=== PATIENT | male | born 1955 | race Caucasian/White ===

== ENCOUNTER 2017-09-03 06:52 | Inpatient (IN) | payer MEDICARE, OTHER ==
[2017-09-03] VITALS (18 sets, daily range): BP systolic 84–147; BP diastolic 37–84
[~2017-09-03] VITALS: Ht 167.6 cm; Wt 68.2 kg
[2017-09-03] MEDS ORDERED: normal saline 1000ML IV soln IV ONE (07:05)
[2017-09-03 07:17] LABS: EOSINOPHILS # (AUTO) 0.1 X10'3 (0-0.9); EOSINOPHILS % (AUTO) 1.3 % (0-6); LYMPHOCYTES % (AUTO) 21.2 % (21-51); MEAN CORPUSCULAR HEMOGLOBIN 26.7 PG (27.0-31.0); MEAN CORPUSCULAR HGB CONC 32.4 % (33.0-36.5); MEAN CORPUSCULAR VOLUME 82.7 FL (78-98); MEAN PLATELET VOLUME 7.6 FL (7.4-10.4); MONOCYTES # (AUTO) 0.5 X10'3 (0-0.9); MONOCYTES % (AUTO) 9.3 % (2-12); NEUTROPHILS # (AUTO) 3.3 X10'3 (1.8-7.7); NEUTROPHILS % (AUTO) 67.2 % (42-75); PLATELET COUNT 186 X10'3 (140-440); RED BLOOD COUNT 2.41 X10'6 (4.70-6.10); WHITE BLOOD COUNT 4.9 X10'3 (4.5-11.0)
[2017-09-03 07:20] LABS: HEMATOCRIT 19.9 % (42.0-52.0); HEMOGLOBIN 6.4 g/dl (14.0-17.9)
[2017-09-03] MEDS ORDERED: pantoprazole IV 80 MG in normal saline 100ml IV soln 100 ML IV ONE ×4 (07:25)
[2017-09-03] MEDS ORDERED: proCHLORperazine 10 MG/2 ml inj IV ONE (07:25)
[2017-09-03 07:27] LABS: INR 1.1 INR; PARTIAL THROMBOPLASTIN TIME 23 SECONDS (22-32)
[2017-09-03 07:31] LABS: ALANINE AMINOTRANSFERASE 57 U/L (12-78); ALBUMIN 2.8 G/DL (3.4-5.0); ALBUMIN/GLOBULIN RATIO 0.8 (1.1-1.5); ANION GAP 8 (8-16); ASPARTATE AMINO TRANSFERASE 39 U/L (10-37); BILIRUBIN,TOTAL 1.1 MG/DL (0.1-1.0); BLOOD UREA NITROGEN 34 MG/DL (7-18); BUN/CREATININE RATIO 35.8 (5.4-32.0); CALCIUM 8.7 MG/DL (8.5-10.1); CHLORIDE 104 MMOL/L (99-107); CREATININE 0.95 MG/DL (0.60-1.10); GLUCOSE 102 MG/DL (70-104); POTASSIUM 3.9 MMOL/L (3.5-5.1); SODIUM 139 MMOL/L (135-145); TOTAL CARBON DIOXIDE 27.2 MMOL/L (24-32); TOTAL PROTEIN 6.4 G/DL (6.4-8.2); eGFR 81 ML/MIN
[2017-09-03 07:32] LABS: ALKALINE PHOSPHATASE 183 IU/L (46-116)
[2017-09-03] MEDS: pantoprazole 40MG/NS 100ML BAG 100 ML IV SCH ×6 (07:44→23:52)
[2017-09-03] MEDS ORDERED: TRAZ-146 PO (08:01)
[2017-09-03] MEDS ORDERED: QUET-1 PO (08:01)
[2017-09-03] MEDS ORDERED: acetaminophen 325mg tablet PO PRN (08:20)
[2017-09-03] MEDS ORDERED: magnesium hydroxide 30ml (MOM) UD suspension PO PRN (08:20)
[2017-09-03] MEDS ORDERED: mag hydrox/Alum hydrox/simeth 30ml oral suspension PO PRN (08:20)
[2017-09-03] MEDS ORDERED: ondansetron/PF 4mg/2ml inj IV PRN (08:20)
[2017-09-03] MEDS ORDERED: LIDOcaine Viscous 15ml cup ONE (09:23)
[2017-09-03] MEDS ORDERED: MIDAZolam 5mg/5ml vial ONE (09:23)
[2017-09-03] MEDS ORDERED: fentaNYL/PF 50MCG/1 ML 2ML syringe ONE (09:23)
[2017-09-03 09:39] LABS: CLARITY,URINE CLEAR (Clear); COLOR,URINE YELLOW (Yellow); GLUCOSE, URINE NEGATIVE (Neg); KETONES,URINE NEGATIVE (Neg); LEUKOCYTE ESTERASE ,URINE NEGATIVE (Neg); NITRITES, URINE NEGATIVE (Neg); OCCULT BLOOD,URINE NEGATIVE (Neg); PROTEIN,URINE NEGATIVE (Neg)
[2017-09-03 09:46] LABS: UA COLLECTION TYPE URINAL
[2017-09-03] MEDS ORDERED: epiNEPHrine 0.1mg/ml 10ml syringe ONE (09:49)
[2017-09-03] MEDS: normal saline 1000ml 1,000 ML IV SCH ×2 (11:43→22:14)
[2017-09-03 14:42] LABS: MEAN CORPUSCULAR HEMOGLOBIN 27.3 PG (27.0-31.0); MEAN CORPUSCULAR HGB CONC 32.6 % (33.0-36.5); MEAN CORPUSCULAR VOLUME 83.6 FL (78-98); MEAN PLATELET VOLUME 7.9 FL (7.4-10.4); PLATELET COUNT 134 X10'3 (140-440); RED BLOOD COUNT 2.33 X10'6 (4.70-6.10); RED CELL DISTRIBUTION WIDTH 18.8 % (11.5-14.5); WHITE BLOOD COUNT 3.7 X10'3 (4.5-11.0)
[2017-09-03 14:45] LABS: HEMATOCRIT 19.5 % (42.0-52.0); HEMOGLOBIN 6.4 g/dl (14.0-17.9)
[2017-09-03 17:01] LABS: HEMATOCRIT 22.3 % (42.0-52.0); HEMOGLOBIN 7.3 g/dl (14.0-17.9); MEAN CORPUSCULAR HEMOGLOBIN 27.5 PG (27.0-31.0); MEAN CORPUSCULAR HGB CONC 32.8 % (33.0-36.5); MEAN CORPUSCULAR VOLUME 83.9 FL (78-98); PLATELET COUNT 143 X10'3 (140-440); RED BLOOD COUNT 2.66 X10'6 (4.70-6.10); RED CELL DISTRIBUTION WIDTH 18.5 % (11.5-14.5); WHITE BLOOD COUNT 3.1 X10'3 (4.5-11.0)
[2017-09-03] MEDS ORDERED: pneumococcal 23-VAL P-sac vacc 25 mcg/0.5ml vial IMVAC ONE (17:40)
[2017-09-03] MEDS: quetiapine 100mg tablet PO SCH (21:06)
[2017-09-03] MEDS: traZODone 50mg tablet PO SCH (21:07)
[2017-09-03 22:18] LABS: MEAN CORPUSCULAR HEMOGLOBIN 26.8 PG (27.0-31.0); MEAN CORPUSCULAR VOLUME 83.7 FL (78-98); MEAN PLATELET VOLUME 7.8 FL (7.4-10.4); PLATELET COUNT 119 X10'3 (140-440); RED BLOOD COUNT 2.57 X10'6 (4.70-6.10); RED CELL DISTRIBUTION WIDTH 18.1 % (11.5-14.5); WHITE BLOOD COUNT 2.9 X10'3 (4.5-11.0)
[2017-09-03 22:23] LABS: HEMATOCRIT 21.5 % (42.0-52.0); HEMOGLOBIN 6.9 g/dl (14.0-17.9)
[2017-09-04] VITALS (9 sets, daily range): BP systolic 110–160; BP diastolic 62–79
[2017-09-04] MEDS: normal saline 1000ml 1,000 ML IV SCH ×3 (04:18→17:09)
[2017-09-04] MEDS: pantoprazole 40MG/NS 100ML BAG 100 ML IV SCH ×4 (05:05→20:56)
[2017-09-04 05:32] LABS: BASOPHILS % (AUTO) 0.4 % (0-1); EOSINOPHILS # (AUTO) 0.1 X10'3 (0-0.9); EOSINOPHILS % (AUTO) 2.5 % (0-6); HEMOGLOBIN 7.1 g/dl (14.0-17.9); LYMPHOCYTES # (AUTO) 0.7 X10'3 (1.1-4.8); LYMPHOCYTES % (AUTO) 23.2 % (21-51); MEAN CORPUSCULAR HEMOGLOBIN 27.6 PG (27.0-31.0); MEAN CORPUSCULAR VOLUME 83.6 FL (78-98); MEAN PLATELET VOLUME 8.2 FL (7.4-10.4); MONOCYTES # (AUTO) 0.2 X10'3 (0-0.9); MONOCYTES % (AUTO) 6.4 % (2-12); NEUTROPHILS # (AUTO) 1.9 X10'3 (1.8-7.7); NEUTROPHILS % (AUTO) 67.5 % (42-75); PLATELET COUNT 120 X10'3 (140-440); RED BLOOD COUNT 2.56 X10'6 (4.70-6.10); RED CELL DISTRIBUTION WIDTH 17.6 % (11.5-14.5); WHITE BLOOD COUNT 2.8 X10'3 (4.5-11.0)
[2017-09-04 05:44] LABS: HEMATOCRIT 21.4 % (42.0-52.0)
[2017-09-04 05:55] LABS: ALANINE AMINOTRANSFERASE 40 U/L (12-78); ALBUMIN 2.4 G/DL (3.4-5.0); ALBUMIN/GLOBULIN RATIO 0.8 (1.1-1.5); ALKALINE PHOSPHATASE 153 IU/L (46-116); ANION GAP 8 (8-16); ASPARTATE AMINO TRANSFERASE 28 U/L (10-37); BLOOD UREA NITROGEN 12 MG/DL (7-18); BUN/CREATININE RATIO 17.4 (5.4-32.0); CHLORIDE 110 MMOL/L (99-107); CREATININE 0.69 MG/DL (0.60-1.10); GLUCOSE 97 MG/DL (70-104); MAGNESIUM 1.4 MG/DL (1.5-2.4); POTASSIUM 3.8 MMOL/L (3.5-5.1); SODIUM 141 MMOL/L (135-145); TOTAL CARBON DIOXIDE 23.1 MMOL/L (24-32); TOTAL PROTEIN 5.5 G/DL (6.4-8.2); eGFR > 90 ML/MIN
[2017-09-04 06:33] LABS: BANDS% (MANUAL) 7 % (0-10); BASOPHILS % (MANUAL) 1 % (0-1); EOSINOPHILS % (MANUAL) 5 % (0-6); LYMPHOCYTES % (MANUAL) 23 % (21-51); MONOCYTES % (MANUAL) 8 % (2-12); NEUTROPHILS % (MANUAL) 56 % (42-75); TOTAL CELLS COUNTED 100
[2017-09-04 06:34] LABS: ANISOCYTOSIS 2+; ELLIPTOCYTES 1+; HYPOCHROMASIA 1+; PLATELET ESTIMATE DECREASED
[2017-09-04 14:15] LABS: HEMATOCRIT 22.8 % (42.0-52.0); HEMOGLOBIN 7.2 g/dl (14.0-17.9); MEAN CORPUSCULAR HEMOGLOBIN 26.9 PG (27.0-31.0); MEAN CORPUSCULAR HGB CONC 31.7 % (33.0-36.5); MEAN CORPUSCULAR VOLUME 84.8 FL (78-98); MEAN PLATELET VOLUME 7.9 FL (7.4-10.4); PLATELET COUNT 120 X10'3 (140-440); RED BLOOD COUNT 2.69 X10'6 (4.70-6.10); RED CELL DISTRIBUTION WIDTH 17.5 % (11.5-14.5); WHITE BLOOD COUNT 3.2 X10'3 (4.5-11.0)
[2017-09-04 20:04] LABS: HEMATOCRIT 23.1 % (42.0-52.0); HEMOGLOBIN 7.5 g/dl (14.0-17.9); MEAN CORPUSCULAR HEMOGLOBIN 27.3 PG (27.0-31.0); MEAN CORPUSCULAR HGB CONC 32.4 % (33.0-36.5); MEAN CORPUSCULAR VOLUME 84.2 FL (78-98); MEAN PLATELET VOLUME 8.6 FL (7.4-10.4); PLATELET COUNT 115 X10'3 (140-440); RED BLOOD COUNT 2.74 X10'6 (4.70-6.10); RED CELL DISTRIBUTION WIDTH 17.2 % (11.5-14.5); WHITE BLOOD COUNT 3.5 X10'3 (4.5-11.0)
[2017-09-04] MEDS: quetiapine 100mg tablet PO SCH (20:57)
[2017-09-04] MEDS: traZODone 50mg tablet PO SCH (20:57)
[2017-09-04] MEDS ORDERED: acetaminophen 325mg tablet PO PRN (23:35)
[2017-09-04] MEDS ORDERED: magnesium Cl slow-release 64mg tablet PO PRN (23:40)
[2017-09-04] MEDS ORDERED: magnesium 4gm in 100ml NS 100 ML IV PRN (23:40)
[2017-09-04] MEDS ORDERED: potassium Cl 20 mEq SR tablet PO PRN ×4 (23:40)
[2017-09-04] MEDS ORDERED: magnesium/D5W IVPB 100 ML IV PRN ×2 (23:40)
[2017-09-04] MEDS ORDERED: potassium Cl 40MEQ/NS 500ml 500 ML IV PRN ×4 (23:40)
[2017-09-05] MEDS: pantoprazole 40MG/NS 100ML BAG 100 ML IV SCH ×4 (01:00→15:11)
[2017-09-05 02:30] VITALS: BP 131/75
[2017-09-05 05:14] LABS: MONOCYTES # (AUTO) 0.2 X10'3 (0-0.9)
[2017-09-05 05:40] LABS: ALANINE AMINOTRANSFERASE 43 U/L (12-78); ALBUMIN 2.4 G/DL (3.4-5.0); ALBUMIN/GLOBULIN RATIO 0.7 (1.1-1.5); ALKALINE PHOSPHATASE 167 IU/L (46-116); ANION GAP 8 (8-16); ASPARTATE AMINO TRANSFERASE 30 U/L (10-37); BILIRUBIN,TOTAL 0.6 MG/DL (0.1-1.0); BLOOD UREA NITROGEN 12 MG/DL (7-18); BUN/CREATININE RATIO 14.3 (5.4-32.0); CALCIUM 8.3 MG/DL (8.5-10.1); CHLORIDE 108 MMOL/L (99-107); CREATININE 0.84 MG/DL (0.60-1.10); GLUCOSE 94 MG/DL (70-104); MAGNESIUM 1.5 MG/DL (1.5-2.4); POTASSIUM 4.3 MMOL/L (3.5-5.1); SODIUM 141 MMOL/L (135-145); TOTAL CARBON DIOXIDE 24.7 MMOL/L (24-32); TOTAL PROTEIN 5.7 G/DL (6.4-8.2); eGFR > 90 ML/MIN
[2017-09-05 06:00] VITALS: BP 152/75
[2017-09-05 06:03] LABS: HEMATOCRIT 22.3 % (42.0-52.0); HEMOGLOBIN 7.4 g/dl (14.0-17.9); MEAN CORPUSCULAR HEMOGLOBIN 27.9 PG (27.0-31.0); MEAN CORPUSCULAR HGB CONC 33.2 % (33.0-36.5); MEAN CORPUSCULAR VOLUME 83.9 FL (78-98); RED BLOOD COUNT 2.65 X10'6 (4.70-6.10); WHITE BLOOD COUNT 2.7 X10'3 (4.5-11.0)
[2017-09-05 06:04] LABS: EOSINOPHILS % (AUTO) 1.6 % (0-6); LYMPHOCYTES % (AUTO) 33.2 % (21-51); MEAN PLATELET VOLUME 8.2 FL (7.4-10.4); MONOCYTES % (AUTO) 8.1 % (2-12); NEUTROPHILS % (AUTO) 56.7 % (42-75); PLATELET COUNT 108 X10'3 (140-440); RED CELL DISTRIBUTION WIDTH 17.8 % (11.5-14.5)
[2017-09-05 06:05] LABS: BASOPHILS % (AUTO) 0.4 % (0-1); LYMPHOCYTES # (AUTO) 0.9 X10'3 (1.1-4.8); NEUTROPHILS # (AUTO) 1.5 X10'3 (1.8-7.7)
[2017-09-05 06:21] LABS: TOTAL CELLS COUNTED 100
[2017-09-05 06:22] LABS: ANISOCYTOSIS 2+; HYPOCHROMASIA 1+; MICROCYTOSIS 1+; PLATELET ESTIMATE DECREASED; POLYCHROMASIA 1+
[2017-09-05 08:55] LABS: MEAN CORPUSCULAR HEMOGLOBIN 27.7 PG (27.0-31.0); MEAN CORPUSCULAR HGB CONC 33.1 % (33.0-36.5); MEAN CORPUSCULAR VOLUME 83.7 FL (78-98); MEAN PLATELET VOLUME 7.7 FL (7.4-10.4); PLATELET COUNT 106 X10'3 (140-440); RED BLOOD COUNT 2.53 X10'6 (4.70-6.10); RED CELL DISTRIBUTION WIDTH 17.5 % (11.5-14.5); WHITE BLOOD COUNT 2.7 X10'3 (4.5-11.0)
[2017-09-05 09:02] LABS: HEMATOCRIT 21.2 % (42.0-52.0)
[2017-09-05] MEDS ORDERED: temazepam 15mg capsule PO PRN (09:25)
[2017-09-05] MEDS: normal saline 1000ml 1,000 ML IV SCH ×2 (10:18→15:11)
[2017-09-05 11:00] VITALS: BP 146/66
== END 2017-09-05 17:02 | disposition left against medical advice (07) | DRG 381 ==
LOC: ER 06:52 → ED HOLD 08:18 → PCU 3S 09:44
PROVIDERS: ADMIT Family Medicine; ATTEND Family Medicine
PROC: 3E0G8GC Introduction of Other Therapeutic Substance into Upper GI, Via Natural or Artificial Opening Endoscopic (ICD-10-PCS; principal; 2017-09-03)
PROC: 0W3P8ZZ Control Bleeding in Gastrointestinal Tract, Via Natural or Artificial Opening Endoscopic (ICD-10-PCS; 2017-09-03)
PROC: 3E0234Z Introduction of Serum, Toxoid and Vaccine into Muscle, Percutaneous Approach (ICD-10-PCS; 2017-09-03)
PROC: 30233N1 Transfusion of Nonautologous Red Blood Cells into Peripheral Vein, Percutaneous Approach (ICD-10-PCS; 2017-09-03)
PROC: 0DB68ZX Excision of Stomach, Via Natural or Artificial Opening Endoscopic, Diagnostic (ICD-10-PCS; 2017-09-03)
DX: K22.11 Ulcer of esophagus with bleeding (principal); D62 Acute posthemorrhagic anemia; K44.9 Diaphragmatic hernia without obstruction or gangrene; K26.4 Chronic or unspecified duodenal ulcer with hemorrhage; E11.9 Type 2 diabetes mellitus without complications; K29.70 Gastritis, unspecified, without bleeding; F31.9 Bipolar disorder, unspecified; I10 Essential (primary) hypertension; K21.0 Gastro-esophageal reflux disease with esophagitis; Z72.0 Tobacco use; Z23 Encounter for immunization
CPT/HCPCS: 36415; 43239; 71045; 80053; 81003; 83036; 83735; 85025; 85027; 85610; 85730; 86885; 86900; 86901; 86920; 87070; 90732; 93005; 96361; 96365; 96375; 99285; A4620; C9113; G0500; J0171; J0780; J2250; J3010; J7030; P9016

== ENCOUNTER 2018-02-13 15:19 | Emergency (ER) | payer MEDICARE, OTHER ==
[~2018-02-13] VITALS: Ht 167.6 cm; Wt 65.0 kg
[~2018-02-13 15:19] MED LIST: GABA-532 PO; QUET-1 PO; TRAZ-219 PO
[2018-02-13 15:24] VITALS: BP 147/78
[2018-02-13] MEDS ORDERED: normal saline 1000ML IV soln IV ONE (15:35)
[2018-02-13] MEDS ORDERED: pantoprazole IV 80 MG in normal saline 100ml IV soln 100 ML IV ONE (15:35)
[2018-02-13] MEDS ORDERED: pantoprazole 40MG/NS 100ML BAG 100 ML IV SCH (16:00)
[2018-02-13 16:11] LABS: INR 1.1 INR; PROTHROMBIN TIME 10.7 SECONDS (9.0-12.0)
[2018-02-13 16:17] LABS: ALANINE AMINOTRANSFERASE 58 U/L (12-78); ALBUMIN 3.6 G/DL (3.4-5.0); ALKALINE PHOSPHATASE 120 IU/L (46-116); ANION GAP 13 (8-16); ASPARTATE AMINO TRANSFERASE 79 U/L (10-37); BILIRUBIN,TOTAL 1.8 MG/DL (0.1-1.0); BLOOD UREA NITROGEN 9 MG/DL (7-18); BUN/CREATININE RATIO 10.5 (5.4-32.0); CHLORIDE 99 MMOL/L (99-107); CREATININE 0.86 MG/DL (0.60-1.10); GLUCOSE 117 MG/DL (70-104); SODIUM 138 MMOL/L (135-145); TOTAL CARBON DIOXIDE 26.4 MMOL/L (24-32); TOTAL PROTEIN 7.2 G/DL (6.4-8.2); eGFR > 90 ML/MIN
[2018-02-13 16:27] LABS: HEMOGLOBIN 11.4 g/dl (14.0-17.9); MEAN CORPUSCULAR VOLUME 100.1 FL (78-98); WHITE BLOOD COUNT 7.3 X10'3 (4.5-11.0)
[2018-02-13 16:28] LABS: MEAN CORPUSCULAR HEMOGLOBIN 35.6 PG (27.0-31.0); MEAN CORPUSCULAR HGB CONC 35.6 % (33.0-36.5); MEAN PLATELET VOLUME 7.9 FL (7.4-10.4); PLATELET COUNT 62 X10'3 (140-440); RED CELL DISTRIBUTION WIDTH 17.4 % (11.5-14.5)
[2018-02-13 16:29] LABS: BASOPHILS % (AUTO) 0.4 % (0-1); EOSINOPHILS % (AUTO) 0.5 % (0-6); LYMPHOCYTES # (AUTO) 1.2 X10'3 (1.1-4.8); LYMPHOCYTES % (AUTO) 17 % (21-51); MONOCYTES # (AUTO) 0.5 X10'3 (0-0.9); MONOCYTES % (AUTO) 6.5 % (2-12); NEUTROPHILS # (AUTO) 5.6 X10'3 (1.8-7.7); NEUTROPHILS % (AUTO) 75.6 % (42-75)
[2018-02-13 16:32] LABS: ANISOCYTOSIS 1+; PLATELET ESTIMATE DECREASED
[2018-02-13 16:49] LABS: ETHANOL 0.239 GM/DL (0.0-0.010)
[2018-02-13 16:49] LABS: CLARITY,URINE CLEAR (Clear); COLOR,URINE ORANGE (Yellow); GLUCOSE, URINE NEGATIVE (Neg); KETONES,URINE NEGATIVE (Neg); LEUKOCYTE ESTERASE ,URINE NEGATIVE (Neg); NITRITES, URINE NEGATIVE (Neg); OCCULT BLOOD,URINE NEGATIVE (Neg); PH,URINE 6.5 (4.8-8.0); PROTEIN,URINE TRACE mg/dl (Neg); UROBILINOGEN,URINE >=8.0 E.U/dL (0.2-1.0)
[2018-02-13 16:51] LABS: UA COLLECTION TYPE CLN CATCH MIDSTREAM
[2018-02-13 17:04] LABS: BACTERIA,URINE NONE SEEN /HPF (Neg); RBC,URINE NONE SEEN /HPF (0-2); SQUAMOUS EPITHELIAL CELL,UR FEW /LPF (FEW); WBC,URINE NONE SEEN /HPF (0-4)
[2018-02-15 12:10] LABS: OCCULT BLOOD STOOL NEGATIVE (Neg)
== END 2018-02-13 17:25 | disposition home or self-care (01) ==
LOC: ER 15:19
DX: K29.70 Gastritis, unspecified, without bleeding (principal); F10.129 Alcohol abuse with intoxication, unspecified; I10 Essential (primary) hypertension; E11.9 Type 2 diabetes mellitus without complications; Z56.0 Unemployment, unspecified; Z79.899 Other long term (current) drug therapy
CPT/HCPCS: 36415; 71045; 80053; 80320; 81001; 82272; 85025; 85610; 86885; 86900; 86901; 93005; 96365; 99284; C9113; J7030

== ENCOUNTER 2018-05-20 05:01 | Emergency (ER) | payer MEDICARE, OTHER ==
[~2018-05-20] VITALS: Ht 167.6 cm; Wt 68.0 kg
[2018-05-20 05:03] VITALS: BP 151/83
[2018-05-20] MEDS ORDERED: ACET1TAB12 PO (05:19)
[2018-05-20] MEDS ORDERED: AZIT250T PO (05:19)
[2018-05-23] MEDS ORDERED: ALBU6.7H INH (23:54)
[2018-05-23] MEDS ORDERED: PRED20TA PO (23:54)
== END 2018-05-20 05:27 | disposition home or self-care (01) ==
LOC: ER 05:01
DX: J20.9 Acute bronchitis, unspecified (principal); R42 Dizziness and giddiness; I10 Essential (primary) hypertension; E11.9 Type 2 diabetes mellitus without complications; M10.9 Gout, unspecified; F17.200 Nicotine dependence, unspecified, uncomplicated; Z79.899 Other long term (current) drug therapy; Z56.0 Unemployment, unspecified
CPT/HCPCS: 99283

== ENCOUNTER 2018-05-31 18:14 | Emergency (ER) | payer MEDICARE, OTHER ==
[~2018-05-31] VITALS: Ht 167.6 cm; Wt 73.0 kg
[~2018-05-31 18:14] MED LIST changes: +ACET1TAB12 PO; +ALBU6.7H INH
[2018-05-31] MEDS ORDERED: normal saline 1000ML IV soln IVB ONE (20:10)
[2018-05-31 20:37] LABS: BASOPHILS % (AUTO) 0.7 % (0-1); EOSINOPHILS % (AUTO) 1.1 % (0-6); HEMATOCRIT 38.4 % (42.0-52.0); HEMOGLOBIN 13.1 g/dl (14.0-17.9); LYMPHOCYTES # (AUTO) 1.4 X10'3 (1.1-4.8); LYMPHOCYTES % (AUTO) 47.7 % (21-51); MEAN CORPUSCULAR HEMOGLOBIN 34.4 PG (27.0-31.0); MEAN CORPUSCULAR HGB CONC 34.1 g/dL (33.0-36.5); MEAN CORPUSCULAR VOLUME 101.1 FL (78-98); MEAN PLATELET VOLUME 7.4 FL (7.4-10.4); MONOCYTES # (AUTO) 0.2 X10'3 (0-0.9); MONOCYTES % (AUTO) 8.1 % (2-12); NEUTROPHILS # (AUTO) 1.3 X10'3 (1.8-7.7); NEUTROPHILS % (AUTO) 42.4 % (42-75); PLATELET COUNT 69 X10'3 (140-440); RED BLOOD COUNT 3.79 X10'6 (4.70-6.10); RED CELL DISTRIBUTION WIDTH 18.4 % (11.5-14.5)
[2018-05-31 20:47] LABS: ALANINE AMINOTRANSFERASE 67 U/L (12-78); ALBUMIN 3.6 G/DL (3.4-5.0); ALKALINE PHOSPHATASE 145 IU/L (46-116); ANION GAP 9 (8-16); ASPARTATE AMINO TRANSFERASE 86 U/L (10-37); BILIRUBIN,TOTAL 0.9 MG/DL (0.1-1.0); BLOOD UREA NITROGEN 9 MG/DL (7-18); BUN/CREATININE RATIO 17.3 (5.4-32.0); CALCIUM 8.5 MG/DL (8.5-10.1); CHLORIDE 105 MMOL/L (99-107); CREATININE 0.52 MG/DL (0.60-1.10); GLUCOSE 88 MG/DL (70-104); POTASSIUM 3.8 MMOL/L (3.5-5.1); SODIUM 142 MMOL/L (135-145); TOTAL CARBON DIOXIDE 27.8 MMOL/L (24-32); TOTAL PROTEIN 7.3 G/DL (6.4-8.2); eGFR > 90 ML/MIN
[2018-05-31 20:51] LABS: PARTIAL THROMBOPLASTIN TIME 28 SECONDS (22-32); PROTHROMBIN TIME 10.4 SECONDS (9.0-12.0)
[2018-05-31 20:52] LABS: CLARITY,URINE CLEAR (Clear); COLOR,URINE YELLOW (Yellow); GLUCOSE, URINE NEGATIVE (Neg); KETONES,URINE NEGATIVE (Neg); LEUKOCYTE ESTERASE ,URINE NEGATIVE (Neg); NITRITES, URINE NEGATIVE (Neg); OCCULT BLOOD,URINE NEGATIVE (Neg); PROTEIN,URINE NEGATIVE (Neg); UROBILINOGEN,URINE 0.2 E.U/dL (0.2-1.0)
[2018-05-31 20:52] LABS: TROPONIN I < 0.04 NG/ML (0.0-0.05)
[2018-05-31 20:58] LABS: UA COLLECTION TYPE CLN CATCH MIDSTREAM; URINE AMPHETAMINE SCREEN NEGATIVE (Neg); URINE BARBITUATE SCREEN NEGATIVE (Neg); URINE BENZODIAZEPINES SCREEN NEGATIVE (Neg); URINE CANNABINOID SCREEN NEGATIVE (Neg); URINE COCAINE SCREEN NEGATIVE (Neg); URINE METHADONE SCREEN NEGATIVE (Neg); URINE OPIATE SCREEN NEGATIVE (Neg); URINE PHENCYCLIDINE SCREEN NEGATIVE (Neg)
[2018-05-31 21:02] LABS: ETHANOL 0.388 GM/DL (0.0-0.010)
[2018-05-31 21:41] LABS: TOTAL CELLS COUNTED 100
[2018-05-31 21:43] LABS: MICROCYTOSIS 1+; PLATELET ESTIMATE DECREASED; POIKILOCYTOSIS 1+
[2018-05-31 22:25] VITALS: BP 129/67
== END 2018-05-31 22:28 | disposition home or self-care (01) ==
LOC: ER 18:14
DX: F10.129 Alcohol abuse with intoxication, unspecified (principal); R11.2 Nausea with vomiting, unspecified; I10 Essential (primary) hypertension; E11.9 Type 2 diabetes mellitus without complications; M10.9 Gout, unspecified; Z98.890 Other specified postprocedural states; Z79.899 Other long term (current) drug therapy; Y90.9 Presence of alcohol in blood, level not specified; Z56.0 Unemployment, unspecified
CPT/HCPCS: 36415; 71045; 80053; 80305; 80320; 81003; 82948; 84484; 85025; 85610; 85730; 93005; 96360; 99284; J7030